=== PATIENT | female | born 1995 | race Caucasian/White ===

== ENCOUNTER → 2018-04-13 | Outpatient (CLI) | payer BC | END | disposition home or self-care (01) | LOC: C.LAB 11:43 | PROVIDERS: ATTEND Family Medicine | DX: F41.1 Generalized anxiety disorder (principal) ==

== ENCOUNTER 2024-11-01 07:21 | Inpatient (IN) ==
[2024-11-01] MEDS ORDERED: LIDOCAINE 1% LOCAL 20 ML VIAL INFIL PRN (08:17)
[2024-11-01] MEDS ORDERED: OXYTOCIN 30 UNITS/NSS 30 UNITS/500 ML BAG IV PRN (08:17)
[2024-11-01] MEDS: LACTATED RINGER'S 1,000 ML IV PRN (08:46)
[2024-11-01] MEDS: OXYTOCIN 30 UNITS/NSS 30 UNITS/500 ML BAG IV PRN (08:47)
[2024-11-01] MEDS: PENICILLIN GK 6 MU in SODIUM CHLORIDE 0.9% 250 ML IV STA (08:51)
[2024-11-01 09:22] LABS: Hematocrit (blood only) 34.2 % (37.0-47.0); Hemoglobin 11.9 g/dl (12.0-16.0); Mean Corpuscular Hemoglobin 30.9 pg (25.0-34.0); Mean Corpuscular Hgb Conc 34.8 g/dL (32.0-36.0); Mean Corpuscular Volume 88.8 fL (80.0-100.0); Mean Platelet Volume 11.8 fL (9.4-12.4); Platelet Count 219 K/uL (130-400); RDW Coefficient of Variation 14.5 % (11.5-14.5); RDW Standard Deviation 46.5 fL (36.4-46.3); Red Blood Count 3.85 M/uL (4.20-5.40); White Blood Count 11.78 K/ul (4.8-10.8)
--- NOTE | 2024-11-01 09:27 | History & Physical Report ---
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 Pit started. Pen G for GBS+. External FHT and external uterine monitors in place; category 1 POC glucose 111; recheck q4h Rh+, RI, AFVSS Admission and Anticipated Discharge Date Admission Date: November 01, 2024 History of Present Illness Chief Complaint: IOL Primary Care Provider: NO PCP Patient is a 28yo female G1P currently at 39 5/7 WGA (w TREVA 11/03/24 as determined by US) who is here for elective IOL. Pt has h/o generalized anxiety and PCOS. This has been complicated by A1GDM. Fetus LGA w efw 86% at 36wks. Patient has had regular appointments with OB. She denies fevers, fatigue, PAYNE, SOB, chest pain, leg swelling, or n/v exceeding baseline - related symptoms. Mild, irregular ctx; +FM; no FL or BS; FHT cat 1 Blood type: O+ Antibody screen: Neg GBS: Neg Rubella: Immune VDRL/RPR: Neg Gonorrhea: Not detected Chalmydia: Not detected HIV: Non-reactive HbSAg: Non-reactive Allergies Allergy/AdvReac Type Severity Reaction Status Date / Time No Known Allergies Allergy Verified 10/31/24 10:21 Home Medications Medication Instructions Recorded Confirmed Type sertraline [Zoloft] PO 10/09/21 10/31/24 History L. acidophilus/Bifid. animalis PO 04/10/24 10/31/24 History [Daily Probiotic] cranberry fruit concentrate [Azo PO 04/10/24 10/31/24 History Cranberry] 21-iron fu-folic acid PO 04/10/24 10/31/24 History [ Complete] acetone (urine) test (Ketone Urine #50 ea 06/22/24 10/31/24 Rx Test strips) blood sugar diagnostic (OneTouch #150 ea 07/25/24 10/31/24 Rx Verio test strips) lancets 33 gauge (OneTouch Delica #150 ea 07/25/24 10/31/24 Rx Plus Lancet) Past Med/Surg History Problem List (Updated 11/01/24 @ 09:19 by Bay Kaur MD) LGA (large for gestational age) fetus affecting management of mother Gestational diabetes mellitus (GDM) affecting , antepartum 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 B Streptococcus Encounter for anatomic survey Supervision of normal first PCOS (polycystic ovarian syndrome) Secondary amenorrhea Medical History (Updated 11/01/24 @ 09:19 by Bay Kaur MD) UTI (urinary tract infection) Varicella vaccination Anxiety Surgical History S/P wisdom tooth extraction S/P laparoscopic cholecystectomy Family History Other Depression Endometriosis Hypertension Denies family history of Ovarian cancer Breast cancer Colorectal cancer Uterine cancer Social History (Updated 04/10/24 @ 14:09 by Mercedes Gaines) Smoking Status: Never smoker Second Hand Exposure: No; Do You Dip or Chew Tobacco: No; Tobacco Cessation Education Requested by Patient: No Hx Alcohol Use: No Hx Substance Use: No Preferred Language: Georgian Communication Ability: Effective Seal Extrusion Operator Required: No Beliefs That Will Affect Care: None marital status: marital status details: Gyale Albrecht (29) [phone] Current Living Situation: Spouse Current Living Situation Comment: - Delisa current occupational status: employed current occupation: [employer] at [employer] [place] Other Information That Helps Us Care for You: No Feels Safe at Home: Yes Safety Concerns: Feels Safe At This Time Assistive Devices: Contacts Review of Systems 2 Review of Systems: Full ROS conducted and negative except as noted in HPI. Physical Exam 2 Physical Exam: General: Alert and oriented. No acute distress CV: Regular rate and rhythm. No murmurs. Respiratory: CTA bilaterally. No increased work of breathing. Symmetrical chest rise. Abdomen: Gravid: Soft, nontender upon palpation Pelvic: Dilated 1.5 cm; Effacement 50; Station -[address] Marion Lower extremities: No LE edema. No deep calf pain. Results & Data Results & Data Vital Signs (Past 12 Hours) Vital Signs Temp Pulse Resp BP 11/01/24 08:49 88 124/77 11/01/24 07:55 93 H 120/72 11/01/24 07:42 37.2 C 93 H 16 120/72 Laboratory Results 11/01/24 08:47 11/01/24 08:02 POC Glucose 111 H Supervising Physician Co-Signing Physician Notes Resident Physician Supervision Note: I interviewed and examined the patient. Discussed with Dr. Kaur and agree with findings and plan as documented in the note. Any exceptions or clarifications are listed here: 28 yo G1 at 39 5/7 wga presents for eiol for susp LGA. PNI: A1GDM, GBS+. VSS, Fetus cat 1. EFW 8-9lbs. SVE 1.5/50/-2, ceph confirmed by bsus. 35cc sanabria placed and will start pit, gbs + w/ pcn started. Discussed aware of lga, not at point to offer eCS but will see how labor goes Documented By: Stefani Marion MD Resident Activity Tracking Resident Involvement: Resident Care Provided Care Provided: Adult Hospital Medicine and OB Delivery
[2024-11-01] MEDS: SERTRALINE HCL 50 MG TABLET PO SCH (09:58)
[2024-11-01] MEDS: PENICILLIN GK 3 MU in DEXTROSE 5% 100 ML IV PRN (12:38)
--- NOTE | 2024-11-01 15:00 | Labor Progress Brief Note ---
Date of Service November 01, 2024 Subjective bulb out Assessment & Plan (1) Supervision of normal first : (2) Gestational diabetes mellitus (GDM) affecting , antepartum: (3) 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 B Streptococcus: (4) LGA (large for gestational age) fetus affecting management of mother: Plan 28 yo G1 at 39 5/7 wga presents for eiol VSS Fetus cat 1 Labor - pit at 14, now s/p arom. Continue induction GDM - BG wnl GBS+, pcn ordered epidural prn Admission and Anticipated Discharge Date Admission Date: November 01, 2024 Physical Exam Genitourinary: Manual OB Exam: + cervical dilation 4 cm, + cervical effacement 50%, + station -2 and + amniotic fluid (arom clear) OB Exam Monitor Tracing: + external FHT monitor used, + external uterine monitor used (q3) and + category I (115/mod/+accel/-decel) Results & Data Vital Signs (Past 12 Hours) Vital Signs Temp Pulse Resp BP 11/01/24 14:42 87 129/91 11/01/24 14:12 68 112/65 11/01/24 13:42 80 120/68 11/01/24 12:32 80 114/71 11/01/24 12:31 16 11/01/24 12:31 98.2 F 16 11/01/24 11:45 85 121/70 11/01/24 11:16 85 114/74 11/01/24 10:45 81 116/77 11/01/24 09:46 82 122/73 11/01/24 09:16 77 117/69 11/01/24 08:49 88 124/77 11/01/24 07:55 93 H 120/72 11/01/24 07:42 99.0 F 93 H 16 120/72 Coding Level of Care Code None Diagnoses Supervision of normal first Z34.00 Gestational diabetes mellitus (GDM) affecting , antepartum O24.419 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 B Streptococcus Z22.330 LGA (large for gestational age) fetus affecting management of mother O36.60X0
[2024-11-01] MEDS ORDERED: BUPIVACAINE 0.25% PF 30 ML VIAL EPI PRN (17:26)
[2024-11-01] MEDS ORDERED: NALOXONE HCL 1 MG in SODIUM CHLORIDE 0.9% 1,000 ML IV PRN (17:26)
[2024-11-01] MEDS ORDERED: ROPIVACAINE 0.5% PF 5 MG/ML 20 ML VIAL EPI PRN (17:26)
[2024-11-01] MEDS ORDERED: ePHEDrine sulfate 50 MG/ML AMP IV PRN (17:26)
[2024-11-01] MEDS ORDERED: NALBUPHINE HCL INJ 10 MG/ML AMP IV PRN (17:26)
[2024-11-01] MEDS ORDERED: fentaNYL citrate PF 100 MCG/2 ML VIAL EPI PRN (17:26)
[2024-11-01] MEDS ORDERED: NALOXONE HCL 0.4 MG/1 ML VIAL/CARP IV PRN (17:26)
[2024-11-01] MEDS ORDERED: PROMETHAZINE 6.25 MG/50.25 ML BAG IV PRN (17:26)
[2024-11-01] MEDS ORDERED: ONDANSETRON INJ 2 MG/ML 2 ML VIAL IV PRN (17:26)
[2024-11-01] MEDS ORDERED: LIDOCAINE 2% MPF LOCAL 5 ML VIAL EPI PRN (17:26)
[2024-11-01] MEDS ORDERED: SODIUM CHLORIDE 0.9% PF INJ 10 ML VIAL EPI PRN (17:26)
[2024-11-01] MEDS ORDERED: diphenhydrAMINE 50 MG/ML VIAL IV PRN (17:26)
--- NOTE | 2024-11-01 17:38 | Anesthesiology Consultation ---
Date of Service November 01, 2024 Assessment & Plan Chart Review Chart Review: Patient NOT seen in Pre Admission Testing and Acceptable Risk for Labor Epidural Consults Requested none ASA ASA2 Proposed Anesthesia Anesthesia Type: Labor Epidural Risk / Benefits Reviewed With: PT / POA / Parent / Guardian, Accepts Plan and Informed Consent Obtained History Height/Weight Height: 5 ft 4 in Weight: 91.626 kg Allergies Allergy/AdvReac Type Severity Reaction Status Date / Time No Known Allergies Allergy Verified 10/31/24 10:21 Medications Home Medications Medication Instructions Recorded Confirmed Last Taken sertraline [Zoloft] PO 10/09/21 10/31/24 Unknown L. acidophilus/Bifid. animalis PO 04/10/24 10/31/24 Unknown [Daily Probiotic] cranberry fruit concentrate [Azo PO 04/10/24 10/31/24 Unknown Cranberry] 21-iron fu-folic acid PO 04/10/24 10/31/24 Unknown [ Complete] acetone (urine) test (Ketone Urine #50 ea 06/22/24 10/31/24 Unknown Test strips) blood sugar diagnostic (OneTouch #150 ea 07/25/24 10/31/24 Unknown Verio test strips) lancets 33 gauge (OneTouch Delica #150 ea 07/25/24 10/31/24 Unknown Plus Lancet) Active Medications Generic Name Dose Route Start Last Admin Trade Name Freq PRN Reason Stop Dose Admin Lactated Ringer's 1,000 mls @ 125 mls/hr 11/01/24 08:17 11/01/24 17:05 Lr IV 11/02/24 08:16 999 mls/hr .Q8H PRN Infusion L&D Protocol Protocol Penicillin G Potassium 3 mu/ 106 mls @ 100 mls/hr 11/01/24 11:17 11/01/24 16:40 Dextrose IV 11/11/24 11:16 100 mls/hr Q4H PRN Administration GBS(+) Until Delivery Oxytocin 30 units in 500 mls @ 14 mls/hr 11/01/24 08:32 11/01/24 14:15 Pitocin 30 Units/Nss IV 11/03/24 08:31 0.84 units/hr .Q24H PRN 14 mls/hr Labor Induction/Augmentation Titration Protocol 0.84 UNITS/HR Sertraline HCl 50 mg 11/01/24 09:00 11/01/24 09:58 Sertraline Hcl 50 Mg Tablet PO 12/01/24 08:59 50 mg DAILY RIELY Administration Past Medical History Medical History (Updated 11/01/24 @ 09:19 by Bay Kaur MD) UTI (urinary tract infection) Varicella vaccination Anxiety Exercise / Class Metabolic Activity II 4-5 Yardwork/Stairs/Walk up hill Past Family History Family History Other Depression Endometriosis Hypertension Denies family history of Ovarian cancer Breast cancer Colorectal cancer Uterine cancer Past Surgical History Surgical History S/P wisdom tooth extraction S/P laparoscopic cholecystectomy Past Anesthesia History No Hx of Anesthesia Complications and No Family Hx of Anesthesia Complications History of PONV No Hx of PONV and No Hx of Motion Sickness Social History Smoking Status: Never smoker Do You Dip or Chew Tobacco: No Hx Alcohol Use: No Hx Substance Use: No Physical Exam Vital Signs Last Vital Signs Temp 36.6 C 11/01/24 16:59 Pulse 87 11/01/24 17:34 Resp 16 11/01/24 17:30 BP 119/81 11/01/24 17:34 Pulse Ox 97 11/01/24 17:31 ENMT Mouth: no dentition abnormality Thyromental Distance: > or= 3.5 Finger Breadths Mallampati Class: II Neck normal visual inspection Respiratory normal respiratory effort Auscultation: lungs clear to auscultation bilaterally Cardiovascular Rate/Rhythm: regular rate and regular rhythm Psychiatric Orientation: alert Testing Laboratory Results 11/01/24 08:47 11/01/24 11/01/24 11/01/24 16:38 14:39 10:11 POC Glucose 82 90 87 11/01/24 08:02 POC Glucose 111 H
[2024-11-01] MEDS: fentANYL 2 MCG/ML BUPIVacaine 0.125%-NSS 100ML BAG ONE (17:49)
[2024-11-01] MEDS: LIDOCAINE 2%/EPINEPHRINE 1:200,000 20 ML PF ONE (17:51)
[2024-11-01] MEDS: BUPIVACAINE 0.25% PF 30 ML VIAL ONE (17:51)
[2024-11-01] MEDS: SODIUM CHLORIDE 0.9% PF INJ 10 ML VIAL ONE (17:51)
--- NOTE | 2024-11-01 20:43 | Labor Progress Brief Note ---
Date of Service November 01, 2024 Subjective comfortable w/ epidural Assessment & Plan (1) Supervision of normal first : (2) Gestational diabetes mellitus (GDM) affecting , antepartum: (3) 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 B Streptococcus: (4) LGA (large for gestational age) fetus affecting management of mother: Plan 28 yo G1 at 39 5/7 wga presents for eiol VSS Fetus cat 1 Labor - pit at 18, progress noted from my arom. IUPC placed so can guide contractions more GDM - BG wnl GBS+, pcn ordered epidural in place Admission and Anticipated Discharge Date Admission Date: November 01, 2024 Physical Exam Genitourinary: Manual OB Exam: + cervical dilation 5 cm, + cervical effacement 70% and + station -2 OB Exam Monitor Tracing: + external FHT monitor used, + intra-uterine pressure catheter used (placed, q3) and + category I (115/mod/+accel/-decel) Results & Data Vital Signs (Past 12 Hours) Vital Signs Temp Pulse Resp BP Pulse Ox 11/01/24 20:36 67 99 11/01/24 20:31 74 98 11/01/24 20:26 67 98 11/01/24 20:21 62 102/58 L 98 11/01/24 20:16 60 98 11/01/24 20:11 62 97 11/01/24 20:07 76 102/55 L 11/01/24 20:06 73 97 11/01/24 20:01 67 97 11/01/24 19:56 63 97 11/01/24 19:53 68 100/52 L 11/01/24 19:51 67 96 11/01/24 19:46 85 96 11/01/24 19:41 76 95 11/01/24 19:36 79 105/59 L 96 11/01/24 19:31 80 95 11/01/24 19:30 80 94 11/01/24 19:26 71 95 11/01/24 19:21 96 11/01/24 19:21 78 11/01/24 19:21 78 100/55 L 11/01/24 19:16 82 96 11/01/24 19:11 79 96 11/01/24 19:08 75 106/57 L 11/01/24 19:06 81 97 11/01/24 19:05 98.8 F 20 11/01/24 19:01 72 97 11/01/24 19:00 16 11/01/24 19:00 16 11/01/24 18:56 68 97 11/01/24 18:52 63 112/60 11/01/24 18:51 63 96 11/01/24 18:46 71 97 11/01/24 18:41 70 97 11/01/24 18:37 74 111/59 L 11/01/24 18:36 63 96 11/01/24 18:31 92 H 98 11/01/24 18:30 16 11/01/24 18:30 16 11/01/24 18:26 89 97 11/01/24 18:22 81 114/53 L 11/01/24 18:21 102 H 97 11/01/24 18:16 81 95 11/01/24 18:11 81 95 11/01/24 18:06 78 120/59 L 95 11/01/24 18:01 16 11/01/24 18:01 16 11/01/24 18:01 96 11/01/24 18:01 85 11/01/24 18:01 90 115/63 11/01/24 18:00 16 11/01/24 18:00 16 11/01/24 17:59 77 119/66 11/01/24 17:57 90 111/68 11/01/24 17:56 88 96 11/01/24 17:55 85 118/73 11/01/24 17:54 16 11/01/24 17:54 16 11/01/24 17:53 80 116/72 11/01/24 17:51 97 11/01/24 17:51 91 H 11/01/24 17:51 82 115/75 11/01/24 17:50 16 11/01/24 17:50 16 11/01/24 17:49 91 H 121/80 11/01/24 17:46 97 H 98 11/01/24 17:41 96 H 99 11/01/24 17:36 96 H 96 11/01/24 17:34 87 119/81 11/01/24 17:31 86 97 11/01/24 17:30 16 11/01/24 17:30 16 11/01/24 17:26 83 96 11/01/24 17:21 80 97 11/01/24 17:16 91 H 98 11/01/24 16:59 97.9 F 11/01/24 15:57 76 144/83 H 11/01/24 15:13 76 121/74 11/01/24 14:50 97.9 F 11/01/24 14:42 87 129/91 11/01/24 14:12 68 112/65 11/01/24 13:42 80 120/68 11/01/24 12:32 80 114/71 11/01/24 12:31 16 11/01/24 12:31 98.2 F 16 11/01/24 11:45 85 121/70 11/01/24 11:16 85 114/74 11/01/24 10:45 81 116/77 11/01/24 09:46 82 122/73 11/01/24 09:16 77 117/69 11/01/24 08:49 88 124/77 Coding Level of Care Code None Diagnoses Supervision of normal first Z34.00 Gestational diabetes mellitus (GDM) affecting , antepartum O24.419 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 B Streptococcus Z22.330 LGA (large for gestational age) fetus affecting management of mother O36.60X0
--- NOTE | 2024-11-01 22:56 | Labor Progress Brief Note ---
Date of Service November 01, 2024 Subjective having some variables Assessment & Plan (1) Gestational diabetes mellitus (GDM) affecting , antepartum: (2) LGA (large for gestational age) fetus affecting management of mother: (3) 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 B Streptococcus: Plan 28 yo G1 at 39 5/7 wga presents for eiol VSS Fetus cat 2 but reassuring Labor - pit at 22. Discussed variables but good progress noted from my last check, reassuring variability still. Discussed amnioinfusion to try to help relieve variables as well and pt agreeable GDM - q2hbg GBS+, pcn ordered epidural in place Admission and Anticipated Discharge Date Admission Date: November 01, 2024 Physical Exam Genitourinary: Manual OB Exam: + cervical dilation (6-7), + cervical effacement 80% and + station -2 OB Exam Monitor Tracing: + external FHT desmond tor used, + intra-uterine pressure catheter used and + category II (130/mod/+accels/+variables and early decels) Results & Data Vital Signs (Past 12 Hours) Vital Signs Temp Pulse Resp BP Pulse Ox 11/01/24 22:46 71 98 11/01/24 22:41 90 97 11/01/24 22:36 88 124/77 96 11/01/24 22:31 82 97 11/01/24 22:26 78 98 11/01/24 22:25 78 92 11/01/24 22:22 73 125/76 11/01/24 22:21 79 98 11/01/24 22:16 82 97 11/01/24 22:11 81 98 11/01/24 22:06 69 114/57 L 98 11/01/24 22:01 65 98 11/01/24 21:56 81 98 11/01/24 21:51 67 98 11/01/24 21:46 82 98 11/01/24 21:41 78 98 11/01/24 21:36 99 11/01/24 21:36 83 11/01/24 21:36 80 121/67 11/01/24 21:31 71 99 11/01/24 21:26 81 99 11/01/24 21:21 79 114/64 100 11/01/24 21:16 80 100 11/01/24 21:11 86 96 11/01/24 21:10 97.9 F 11/01/24 21:06 100 02/19/25 21:06 82 11/01/24 21:06 82 124/67 11/01/24 21:04 74 94 11/01/24 21:01 76 100 11/01/24 20:56 75 100 11/01/24 20:53 76 121/67 11/01/24 20:51 76 99 11/01/24 20:46 77 98 11/01/24 20:45 81 93 11/01/24 20:41 79 98 11/01/24 20:36 67 99 11/01/24 20:31 74 98 11/01/24 20:26 67 98 11/01/24 20:21 62 102/58 L 98 11/01/24 20:16 60 98 11/01/24 20:11 62 97 11/01/24 20:07 76 102/55 L 11/01/24 20:06 73 97 11/01/24 20:01 67 97 11/01/24 19:56 63 97 11/01/24 19:53 68 100/52 L 11/01/24 19:51 67 96 11/01/24 19:46 85 96 11/01/24 19:41 76 95 11/01/24 19:36 79 105/59 L 96 11/01/24 19:31 80 95 11/01/24 19:30 80 94 11/01/24 19:26 71 95 11/01/24 19:21 96 11/01/24 19:21 78 11/01/24 19:21 78 100/55 L 11/01/24 19:16 82 96 11/01/24 19:11 79 96 11/01/24 19:08 75 106/57 L 11/01/24 19:06 81 97 11/01/24 19:05 98.8 F 20 11/01/24 19:01 72 97 11/01/24 19:00 16 11/01/24 19:00 16 11/01/24 18:56 68 97 11/01/24 18:52 63 112/60 11/01/24 18:51 63 96 11/01/24 18:46 71 97 11/01/24 18:41 70 97 11/01/24 18:37 74 111/59 L 11/01/24 18:36 63 96 11/01/24 18:31 92 H 98 11/01/24 18:30 16 11/01/24 18:30 16 11/01/24 18:26 89 97 11/01/24 18:22 81 114/53 L 11/01/24 18:21 102 H 97 11/01/24 18:16 81 95 11/01/24 18:11 81 95 11/01/24 18:06 78 120/59 L 95 11/01/24 18:01 16 11/01/24 18:01 16 11/01/24 18:01 96 11/01/24 18:01 85 11/01/24 18:01 90 115/63 11/01/24 18:00 16 11/01/24 18:00 16 11/01/24 17:59 77 119/66 11/01/24 17:57 90 111/68 11/01/24 17:56 88 96 11/01/24 17:55 85 118/73 11/01/24 17:54 16 11/01/24 17:54 16 11/01/24 17:53 80 116/72 11/01/24 17:51 97 11/01/24 17:51 91 H 11/01/24 17:51 82 115/75 11/01/24 17:50 16 11/01/24 17:50 16 11/01/24 17:49 91 H 121/80 11/01/24 17:46 97 H 98 11/01/24 17:41 96 H 99 11/01/24 17:36 96 H 96 11/01/24 17:34 87 119/81 11/01/24 17:31 86 97 11/01/24 17:30 16 11/01/24 17:30 16 11/01/24 17:26 83 96 11/01/24 17:21 80 97 11/01/24 17:16 91 H 98 11/01/24 16:59 97.9 F 11/01/24 15:57 76 144/83 H 11/01/24 15:13 76 121/74 11/01/24 14:50 97.9 F 11/01/24 14:42 87 129/91 11/01/24 14:12 68 112/65 11/01/24 13:42 80 120/68 11/01/24 12:32 80 114/71 11/01/24 12:31 16 11/01/24 12:31 98.2 F 16 11/01/24 11:45 85 121/70 11/01/24 11:16 85 114/74 Coding Level of Care Code None Diagnoses Gestational diabetes mellitus (GDM) affecting , antepartum O24.419 LGA (large for gestational age) fetus affecting management of mother O36.60X0 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 B Streptococcus Z22.330
--- NOTE | 2024-11-02 02:13 | Labor Progress Brief Note ---
Date of Service November 02, 2024 Subjective comfortable Assessment & Plan (1) Gestational diabetes mellitus (GDM) affecting , antepartum: (2) LGA (large for gestational age) fetus affecting management of mother: (3) 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 B Streptococcus: Plan 28 yo G1 at 39 5/7 wga presents for eiol VSS Fetus cat 2 but reassuring Labor - pit at 22, didn't end up needing amnioinfusion and now good progress. Fetus still reassuring with intermit variables. Will try to peanut ball to get remaining cervix away and baby lower to start pushing GDM - q2hbg GBS+, pcn ordered epidural in place Admission and Anticipated Discharge Date Admission Date: November 01, 2024 Physical Exam Genitourinary: Manual OB Exam: + cervical dilation (9.5), + cervical effacement 100% and + station + 1 OB Exam Monitor Tracing: + external FHT monitor used, + external uterine monitor used (q3), + intra-uterine pressure catheter used and + category II (130/mod/+accels/+intermit variables and early decels) Results & Data Vital Signs (Past 12 Hours) Vital Signs Temp Pulse Resp BP Pulse Ox 11/02/24 02:07 87 94 11/02/24 02:06 81 106/57 L 11/02/24 02:02 92 H 94 11/02/24 01:57 83 94 11/02/24 01:52 92 H 94 11/02/24 01:51 93 H 100/59 L 11/02/24 01:47 82 95 11/02/24 01:42 81 95 11/02/24 01:37 96 11/02/24 01:37 94 H 11/02/24 01:37 96 H 114/56 L 11/02/24 01:35 99.5 F 11/02/24 01:32 92 H 94 11/02/24 01:28 86 94 11/02/24 01:27 92 H 94 11/02/24 01:22 91 H 117/56 L 95 11/02/24 01:21 87 94 11/02/24 01:17 85 94 11/02/24 01:13 87 94 11/02/24 01:12 91 H 95 11/02/24 01:07 96 11/02/24 01:07 88 11/02/24 01:07 85 121/57 L 11/02/24 01:04 82 94 11/02/24 01:02 83 95 11/02/24 00:57 95 11/02/24 00:57 82 11/02/24 00:57 83 94 11/02/24 00:52 95 11/02/24 00:52 78 11/02/24 00:52 83 117/58 L 11/02/24 00:46 84 95 11/02/24 00:41 81 96 11/02/24 00:36 79 96 11/02/24 00:31 71 97 11/02/24 00:26 87 98 11/02/24 00:21 81 98 11/02/24 00:16 96 H 96 11/02/24 00:11 81 98 11/02/24 00:06 76 122/62 97 11/02/24 00:01 83 95 11/01/24 23:59 75 94 11/01/24 23:56 80 95 11/01/24 23:52 77 125/67 11/01/24 23:51 75 95 11/01/24 23:46 76 96 11/01/24 23:41 92 H 97 11/01/24 23:37 79 127/68 11/01/24 23:36 75 97 11/01/24 23:35 98.8 F 11/01/24 23:31 80 99 11/01/24 23:26 79 99 11/01/24 23:21 98 11/01/24 23:21 83 11/01/24 23:21 80 137/73 11/01/24 23:16 83 98 11/01/24 23:11 82 98 11/01/24 23:07 82 134/73 11/01/24 23:06 77 98 11/01/24 23:01 100 11/01/24 23:01 79 11/01/24 23:01 81 92 11/01/24 22:56 71 100 11/01/24 22:51 81 120/69 99 11/01/24 22:46 71 98 11/01/24 22:41 90 97 11/01/24 22:36 88 124/77 96 11/01/24 22:31 82 97 11/01/24 22:26 78 98 11/01/24 22:25 78 92 11/01/24 22:22 73 125/76 11/01/24 22:21 79 98 11/01/24 22:16 82 97 11/01/24 22:11 81 98 11/01/24 22:06 69 114/57 L 98 11/01/24 22:01 65 98 11/01/24 21:56 81 98 11/01/24 21:51 67 98 11/01/24 21:46 82 98 11/01/24 21:41 78 98 11/01/24 21:36 99 11/01/24 21:36 83 11/01/24 21:36 80 121/67 11/01/24 21:31 71 99 11/01/24 21:26 81 99 11/01/24 21:21 79 114/64 100 11/01/24 21:16 80 100 11/01/24 21:11 86 96 11/01/24 21:10 97.9 F 11/01/24 21:06 100 11/01/24 21:06 82 11/01/24 21:06 82 124/67 11/01/24 21:04 74 94 11/01/24 21:01 76 100 11/01/24 20:56 75 100 11/01/24 20:53 76 121/67 11/01/24 20:51 76 99 11/01/24 20:46 77 98 11/01/24 20:45 81 93 11/01/24 20:41 79 98 11/01/24 20:36 67 99 11/01/24 20:31 74 98 11/01/24 20:26 67 98 11/01/24 20:21 62 102/58 L 98 11/01/24 20:16 60 98 11/01/24 20:11 62 97 11/01/24 20:07 76 102/55 L 11/01/24 20:06 73 97 11/01/24 20:01 67 97 11/01/24 19:56 63 97 11/01/24 19:53 68 100/52 L 11/01/24 19:51 67 96 11/01/24 19:46 85 96 11/01/24 19:41 76 95 11/01/24 19:36 79 105/59 L 96 11/01/24 19:31 80 95 11/01/24 19:30 80 94 11/01/24 19:26 71 95 11/01/24 19:21 96 11/01/24 19:21 78 11/01/24 19:21 78 100/55 L 11/01/24 19:16 82 96 11/01/24 19:11 79 96 11/01/24 19:08 75 106/57 L 11/01/24 19:06 81 97 11/01/24 19:05 98.8 F 20 11/01/24 19:01 72 97 11/01/24 19:00 16 11/01/24 19:00 16 11/01/24 18:56 68 97 11/01/24 18:52 63 112/60 11/01/24 18:51 63 96 11/01/24 18:46 71 97 11/01/24 18:41 70 97 11/01/24 18:37 74 111/59 L 11/01/24 18:36 63 96 11/01/24 18:31 92 H 98 11/01/24 18:30 16 11/01/24 18:30 16 11/01/24 18:26 89 97 11/01/24 18:22 81 114/53 L 11/01/24 18:21 102 H 97 11/01/24 18:16 81 95 11/01/24 18:11 81 95 11/01/24 18:06 78 120/59 L 95 11/01/24 18:01 16 11/01/24 18:01 16 11/01/24 18:01 96 11/01/24 18:01 85 11/01/24 18:01 90 115/63 11/01/24 18:00 16 11/01/24 18:00 16 11/01/24 17:59 77 119/66 11/01/24 17:57 90 111/68 11/01/24 17:56 88 96 11/01/24 17:55 85 118/73 11/01/24 17:54 16 11/01/24 17:54 16 11/01/24 17:53 80 116/72 11/01/24 17:51 97 11/01/24 17:51 91 H 11/01/24 17:51 82 115/75 11/01/24 17:50 16 11/01/24 17:50 16 11/01/24 17:49 91 H 121/80 11/01/24 17:46 97 H 98 11/01/24 17:41 96 H 99 11/01/24 17:36 96 H 96 11/01/24 17:34 87 119/81 11/01/24 17:31 86 97 11/01/24 17:30 16 11/01/24 17:30 16 11/01/24 17:26 83 96 11/01/24 17:21 80 97 11/01/24 17:16 91 H 98 11/01/24 16:59 97.9 F 11/01/24 15:57 76 144/83 H 11/01/24 15:13 76 121/74 11/01/24 14:50 97.9 F 11/01/24 14:42 87 129/91 11/01/24 14:12 68 112/65 Coding Level of Care Code None Diagnoses Gestational diabetes mellitus (GDM) affecting , antepartum O24.419 LGA (large for gestational age) fetus affecting management of mother O36.60X0 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 B Streptococcus Z22.330
[2024-11-02] MEDS: fentANYL 2 MCG/ML BUPIVacaine 0.125%-NSS 100ML BAG EPI PRN (03:21)
--- NOTE | 2024-11-02 06:41 | Labor Progress Brief Note ---
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 Makes good effort but there is component that she is still figuring out how to push. However, even with this, bottom is getting more swollen and there has not been significant change since she started pushing on discussion w/ nurse as well. Discussed concern that size is also impairing this, possible need for CS. She verbalized understanding, would like to try to push a little bit longer but aware that may be recommendation shortly and she would be agreeable. Will re-eval shortly Admission and Anticipated Discharge Date Admission Date: November 01, 2024 Physical Exam Genitourinary: Manual OB Exam: + cervical dilation 10 cm, + cervical effacement 100% and + station + 1 OB Exam Monitor Tracing: + external FHT monitor used, + external uterine monitor used and + category II (150- 155/mod/appropriate occ variables with pushing with good recovery) Results & Data Vital Signs (Past 12 Hours) Vital Signs Temp Pulse Resp BP Pulse Ox 11/02/24 06:33 98 H 89 L 11/02/24 06:31 99 H 93 11/02/24 05:59 98.8 F 11/02/24 05:57 143 H 94 11/02/24 05:52 139 H 94 11/02/24 05:47 137 H 94 11/02/24 05:42 120 H 94 11/02/24 05:37 123 H 94 11/02/24 05:32 129 H 96 11/02/24 05:29 102 H 124/64 11/02/24 05:27 123 H 95 11/02/24 05:22 150 H 95 11/02/24 05:21 116 H 122/62 11/02/24 05:17 113 H 95 11/02/24 05:12 134 H 94 11/02/24 05:07 149 H 96 11/02/24 05:06 105 H 130/60 11/02/24 05:02 104 H 95 11/02/24 04:57 108 H 95 11/02/24 04:53 113 H 133/63 11/02/24 04:52 137 H 94 11/02/24 04:47 114 H 95 11/02/24 04:42 137 H 95 11/02/24 04:37 119 H 95 11/02/24 04:32 96 11/02/24 04:32 101 H 11/02/24 04:32 122 H 89 L 11/02/24 04:27 105 H 96 11/02/24 04:22 124 H 96 11/02/24 04:21 108 H 136/74 11/02/24 04:17 124 H 96 11/02/24 04:12 97 H 97 11/02/24 04:07 89 97 11/02/24 04:06 108 H 132/72 11/02/24 04:02 91 H 97 11/02/24 03:57 94 H 97 11/02/24 03:52 88 96 11/02/24 03:47 89 97 11/02/24 03:42 92 H 97 11/02/24 03:37 89 98 11/02/24 03:36 88 130/76 11/02/24 03:32 86 97 11/02/24 03:30 18 11/02/24 03:30 98.8 F 18 11/02/24 03:27 88 97 11/02/24 03:22 89 133/77 97 11/02/24 03:17 89 98 11/02/24 03:12 88 98 11/02/24 03:07 96 H 97 11/02/24 03:02 103 H 97 11/02/24 02:57 91 H 97 11/02/24 02:52 87 96 11/02/24 02:47 89 96 11/02/24 02:42 87 97 11/02/24 02:37 82 96 11/02/24 02:36 90 109/59 L 11/02/24 02:32 79 97 11/02/24 02:27 78 97 11/02/24 02:22 80 97 11/02/24 02:21 86 109/60 11/02/24 02:17 88 97 11/02/24 02:12 91 H 97 11/02/24 02:07 87 94 11/02/24 02:06 81 106/57 L 11/02/24 02:02 92 H 94 11/02/24 01:57 83 94 11/02/24 01:52 92 H 94 11/02/24 01:51 93 H 100/59 L 11/02/24 01:47 82 95 11/02/24 01:42 81 95 11/02/24 01:37 96 11/02/24 01:37 94 H 11/02/24 01:37 96 H 114/56 L 11/02/24 01:35 99.5 F 11/02/24 01:32 92 H 94 11/02/24 01:28 86 94 11/02/24 01:27 92 H 94 11/02/24 01:22 91 H 117/56 L 95 11/02/24 01:21 87 94 11/02/24 01:17 85 94 11/02/24 01:13 87 94 11/02/24 01:12 91 H 95 11/02/24 01:07 96 11/02/24 01:07 88 11/02/24 01:07 85 121/57 L 11/02/24 01:04 82 94 11/02/24 01:02 83 95 11/02/24 00:57 95 11/02/24 00:57 82 11/02/24 00:57 83 94 11/02/24 00:52 95 11/02/24 00:52 78 11/02/24 00:52 83 117/58 L 11/02/24 00:46 84 95 11/02/24 00:41 81 96 11/02/24 00:36 79 96 11/02/24 00:31 71 97 11/02/24 00:26 87 98 11/02/24 00:21 81 98 11/02/24 00:16 96 H 96 11/02/24 00:11 81 98 11/02/24 00:06 76 122/62 97 11/02/24 00:01 83 95 11/01/24 23:59 75 94 11/01/24 23:56 80 95 11/01/24 23:52 77 125/67 11/01/24 23:51 75 95 11/01/24 23:46 76 96 11/01/24 23:41 92 H 97 11/01/24 23:37 79 127/68 11/01/24 23:36 75 97 02/19/25 23:35 98.8 F 11/01/24 23:31 80 99 11/01/24 23:26 79 99 11/01/24 23:21 98 11/01/24 23:21 83 11/01/24 23:21 80 137/73 11/01/24 23:16 83 98 11/01/24 23:11 82 98 11/01/24 23:07 82 134/73 11/01/24 23:06 77 98 11/01/24 23:01 100 11/01/24 23:01 79 11/01/24 23:01 81 92 11/01/24 22:56 71 100 11/01/24 22:51 81 120/69 99 11/01/24 22:46 71 98 11/01/24 22:41 90 97 11/01/24 22:36 88 124/77 96 11/01/24 22:31 82 97 11/01/24 22:26 78 98 11/01/24 22:25 78 92 11/01/24 22:22 73 125/76 11/01/24 22:21 79 98 11/01/24 22:16 82 97 11/01/24 22:11 81 98 11/01/24 22:06 69 114/57 L 98 11/01/24 22:01 65 98 11/01/24 21:56 81 98 11/01/24 21:51 67 98 11/01/24 21:46 82 98 11/01/24 21:41 78 98 11/01/24 21:36 99 11/01/24 21:36 83 11/01/24 21:36 80 121/67 11/01/24 21:31 71 99 11/01/24 21:26 81 99 11/01/24 21:21 79 114/64 100 11/01/24 21:16 80 100 11/01/24 21:11 86 96 11/01/24 21:10 97.9 F 11/01/24 21:06 100 11/01/24 21:06 82 11/01/24 21:06 82 124/67 11/01/24 21:04 74 94 11/01/24 21:01 76 100 11/01/24 20:56 75 100 11/01/24 20:53 76 121/67 11/01/24 20:51 76 99 11/01/24 20:46 77 98 11/01/24 20:45 81 93 11/01/24 20:41 79 98 11/01/24 20:36 67 99 11/01/24 20:31 74 98 11/01/24 20:26 67 98 11/01/24 20:21 62 102/58 L 98 11/01/24 20:16 60 98 11/01/24 20:11 62 97 11/01/24 20:07 76 102/55 L 11/01/24 20:06 73 97 11/01/24 20:01 67 97 11/01/24 19:56 63 97 11/01/24 19:53 68 100/52 L 11/01/24 19:51 67 96 11/01/24 19:46 85 96 11/01/24 19:41 76 95 11/01/24 19:36 79 105/59 L 96 11/01/24 19:31 80 95 11/01/24 19:30 80 94 11/01/24 19:26 71 95 11/01/24 19:21 96 11/01/24 19:21 78 11/01/24 19:21 78 100/55 L 11/01/24 19:16 82 96 11/01/24 19:11 79 96 11/01/24 19:08 75 106/57 L 11/01/24 19:06 81 97 11/01/24 19:05 98.8 F 20 11/01/24 19:01 72 97 11/01/24 19:00 16 11/01/24 19:00 16 11/01/24 18:56 68 97 11/01/24 18:52 63 112/60 11/01/24 18:51 63 96 11/01/24 18:46 71 97 11/01/24 18:41 70 97 11/01/24 18:37 74 111/59 L 11/01/24 18:36 63 96 Coding Level of Care Code None Diagnoses Gestational diabetes mellitus (GDM) affecting , antepartum O24.419 LGA (large for gestational age) fetus affecting management of mother O36.60X0 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 B Streptococcus Z22.330
[2024-11-02] MEDS ORDERED: SODIUM CHLORIDE 0.9% 100 ML IV PRN (07:18)
[2024-11-02] MEDS ORDERED: SODIUM CHLORIDE 0.9% 50 ML IV PRN (07:18)
--- NOTE | 2024-11-02 07:25 | Labor Progress Brief Note ---
Date of Service November 02, 2024 Assessment & Plan (1) Gestational diabetes mellitus (GDM) affecting , antepartum: (2) LGA (large for gestational age) fetus affecting management of mother: (3) 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 B Streptococcus: Plan 28 yo G1 at 39 5/7 wga presents for eiol VSS Fetus cat 2 but reassuring with pushing No real progress made since last eval and pt getting fatigued. Discussed concern for LGA, more caput, swelling as well and would rec CS and pt agreeable. Discussed indications, risks, benefits, alternatives with risks including infection, bleeding, injury to adjacent structures (bowel, bladder, ureters, blood vessels, nerves, baby), possible need for blood transfusion and/or life saving hysterectomy, VTE. Consent reviewed in detail w/ pt and signed after all questions answered to her satisfaction. Admission and Anticipated Discharge Date Admission Date: November 01, 2024 Physical Exam Genitourinary: OB Exam Monitor Tracing: + external FHT monitor used, + external uterine monitor used and + category II (150-155/mod/) Results & Data Vital Signs (Past 12 Hours) Vital Signs Temp Pulse Resp BP Pulse Ox 11/02/24 07:21 91 H 96 11/02/24 07:18 89 108/62 11/02/24 07:16 81 96 11/02/24 07:11 80 94 11/02/24 07:06 86 85 L 11/02/24 07:03 88 116/61 11/02/24 07:01 79 95 11/02/24 06:56 91 H 94 11/02/24 06:51 86 93 11/02/24 06:47 105 H 90 11/02/24 06:46 95 H 92 11/02/24 06:41 88 93 11/02/24 06:39 108 H 88 L 11/02/24 06:36 95 H 93 11/02/24 06:33 98 H 89 L 11/02/24 06:31 99 H 93 11/02/24 05:59 98.8 F 11/02/24 05:57 143 H 94 11/02/24 05:52 139 H 94 11/02/24 05:47 137 H 94 11/02/24 05:42 120 H 94 11/02/24 05:37 123 H 94 11/02/24 05:32 129 H 96 11/02/24 05:29 102 H 124/64 11/02/24 05:27 123 H 95 11/02/24 05:22 150 H 95 11/02/24 05:21 116 H 122/62 11/02/24 05:17 113 H 95 11/02/24 05:12 134 H 94 11/02/24 05:07 149 H 96 11/02/24 05:06 105 H 130/60 11/02/24 05:02 104 H 95 11/02/24 04:57 108 H 95 11/02/24 04:53 113 H 133/63 11/02/24 04:52 137 H 94 11/02/24 04:47 114 H 95 11/02/24 04:42 137 H 95 11/02/24 04:37 119 H 95 11/02/24 04:32 96 11/02/24 04:32 101 H 11/02/24 04:32 122 H 89 L 11/02/24 04:27 105 H 96 11/02/24 04:22 124 H 96 11/02/24 04:21 108 H 136/74 11/02/24 04:17 124 H 96 11/02/24 04:12 97 H 97 11/02/24 04:07 89 97 11/02/24 04:06 108 H 132/72 11/02/24 04:02 91 H 97 11/02/24 03:57 94 H 97 11/02/24 03:52 88 96 11/02/24 03:47 89 97 11/02/24 03:42 92 H 97 11/02/24 03:37 89 98 11/02/24 03:36 88 130/76 11/02/24 03:32 86 97 11/02/24 03:30 18 11/02/24 03:30 98.8 F 18 11/02/24 03:27 88 97 11/02/24 03:22 89 133/77 97 11/02/24 03:17 89 98 11/02/24 03:12 88 98 11/02/24 03:07 96 H 97 11/02/24 03:02 103 H 97 11/02/24 02:57 91 H 97 11/02/24 02:52 87 96 11/02/24 02:47 89 96 11/02/24 02:42 87 97 11/02/24 02:37 82 96 11/02/24 02:36 90 109/59 L 11/02/24 02:32 79 97 11/02/24 02:27 78 97 11/02/24 02:22 80 97 11/02/24 02:21 86 109/60 11/02/24 02:17 88 97 11/02/24 02:12 91 H 97 11/02/24 02:07 87 94 11/02/24 02:06 81 106/57 L 11/02/24 02:02 92 H 94 11/02/24 01:57 83 94 11/02/24 01:52 92 H 94 11/02/24 01:51 93 H 100/59 L 11/02/24 01:47 82 95 11/02/24 01:42 81 95 11/02/24 01:37 96 11/02/24 01:37 94 H 11/02/24 01:37 96 H 114/56 L 11/02/24 01:35 99.5 F 11/02/24 01:32 92 H 94 11/02/24 01:28 86 94 11/02/24 01:27 92 H 94 11/02/24 01:22 91 H 117/56 L 95 11/02/24 01:21 87 94 11/02/24 01:17 85 94 11/02/24 01:13 87 94 11/02/24 01:12 91 H 95 11/02/24 01:07 96 11/02/24 01:07 88 11/02/24 01:07 85 121/57 L 11/02/24 01:04 82 94 11/02/24 01:02 83 95 11/02/24 00:57 95 11/02/24 00:57 82 11/02/24 00:57 83 94 11/02/24 00:52 95 11/02/24 00:52 78 02 00:52 83 117/58 L 11/02/24 00:46 84 95 11/02/24 00:41 81 96 11/02/24 00:36 79 96 11/02/24 00:31 71 97 11/02/24 00:26 87 98 11/02/24 00:21 81 98 11/02/24 00:16 96 H 96 11/02/24 00:11 81 98 11/02/24 00:06 76 122/62 97 02/20/25 00:01 83 95 11/01/24 23:59 75 94 11/01/24 23:56 80 95 11/01/24 23:52 77 125/67 11/01/24 23:51 75 95 11/01/24 23:46 76 96 11/01/24 23:41 92 H 97 11/01/24 23:37 79 127/68 11/01/24 23:36 75 97 11/01/24 23:35 98.8 F 11/01/24 23:31 80 99 11/01/24 23:26 79 99 11/01/24 23:21 98 11/01/24 23:21 83 11/01/24 23:21 80 137/73 11/01/24 23:16 83 98 11/01/24 23:11 82 98 11/01/24 23:07 82 134/73 11/01/24 23:06 77 98 11/01/24 23:01 100 11/01/24 23:01 79 11/01/24 23:01 81 92 11/01/24 22:56 71 100 11/01/24 22:51 81 120/69 99 11/01/24 22:46 71 98 11/01/24 22:41 90 97 11/01/24 22:36 88 124/77 96 11/01/24 22:31 82 97 11/01/24 22:26 78 98 11/01/24 22:25 78 92 11/01/24 22:22 73 125/76 11/01/24 22:21 79 98 11/01/24 22:16 82 97 11/01/24 22:11 81 98 11/01/24 22:06 69 114/57 L 98 11/01/24 22:01 65 98 11/01/24 21:56 81 98 11/01/24 21:51 67 98 11/01/24 21:46 82 98 11/01/24 21:41 78 98 11/01/24 21:36 99 11/01/24 21:36 83 11/01/24 21:36 80 121/67 11/01/24 21:31 71 99 11/01/24 21:26 81 99 11/01/24 21:21 79 114/64 100 11/01/24 21:16 80 100 11/01/24 21:11 86 96 11/01/24 21:10 97.9 F 11/01/24 21:06 100 11/01/24 21:06 82 11/01/24 21:06 82 124/67 11/01/24 21:04 74 94 11/01/24 21:01 76 100 11/01/24 20:56 75 100 11/01/24 20:53 76 121/67 11/01/24 20:51 76 99 11/01/24 20:46 77 98 11/01/24 20:45 81 93 11/01/24 20:41 79 98 11/01/24 20:36 67 99 11/01/24 20:31 74 98 11/01/24 20:26 67 98 11/01/24 20:21 62 102/58 L 98 11/01/24 20:16 60 98 11/01/24 20:11 62 97 11/01/24 20:07 76 102/55 L 11/01/24 20:06 73 97 11/01/24 20:01 67 97 11/01/24 19:56 63 97 11/01/24 19:53 68 100/52 L 11/01/24 19:51 67 96 11/01/24 19:46 85 96 11/01/24 19:41 76 95 11/01/24 19:36 79 105/59 L 96 11/01/24 19:31 80 95 11/01/24 19:30 80 94 11/01/24 19:26 71 95 Coding Level of Care Code None Diagnoses Gestational diabetes mellitus (GDM) affecting , antepartum O24.419 LGA (large for gestational age) fetus affecting management of mother O36.60X0 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 B Streptococcus Z22.330
[2024-11-02] MEDS ORDERED: NALOXONE HCL 1 MG in SODIUM CHLORIDE 0.9% 1,000 ML IV PRN (07:30)
[2024-11-02] MEDS ORDERED: MoRPHine SULFATE 2 MG/ML CARP IV PRN (07:30)
[2024-11-02] MEDS ORDERED: ePHEDrine sulfate 50 MG/ML AMP IV PRN (07:30)
[2024-11-02] MEDS ORDERED: NALBUPHINE HCL INJ 10 MG/ML AMP IV PRN (07:30)
[2024-11-02] MEDS ORDERED: NALOXONE HCL 0.4 MG/1 ML VIAL/CARP IV PRN (07:30)
[2024-11-02] MEDS ORDERED: HYDROmorphone INJ 0.5 MG/0.5 ML SYR IV PRN (07:30)
[2024-11-02] MEDS ORDERED: MoRPHine SULFATE PF 1 MG/ML 10 ML AMP/VIAL EPI ONE (07:30)
[2024-11-02] MEDS ORDERED: NO NARCOTICS OR SEDATIVES SCH (07:30)
[2024-11-02] MEDS ORDERED: diphenhydrAMINE 50 MG/ML VIAL IV PRN (07:30)
[2024-11-02] MEDS ORDERED: DC INTRASPINAL MORPHINE SCH (07:30)
[2024-11-02] MEDS ORDERED: OXYTOCIN 10 UNITS/ML VIAL ONE (07:33)
[2024-11-02] MEDS ORDERED: PHENYLEPHRINE HCL 25 MG/250 ML NSS IV ONE (07:33)
[2024-11-02] MEDS ORDERED: MoRPHine SULFATE PF 1 MG/ML 10 ML AMP/VIAL ONE (07:33)
[2024-11-02] MEDS ORDERED: LIDOCAINE 2%/EPINEPHRINE 1:200,000 20 ML PF ONE (07:33)
[2024-11-02] MEDS ORDERED: fentaNYL citrate PF 100 MCG/2 ML VIAL ONE (07:33)
[2024-11-02] MEDS: CITRIC ACID/SODIUM CITRATE 15 ML UDC PO SCH (07:39)
[2024-11-02] MEDS: ceFAZolin 2000MG 2,000 MG/15 ML SYR IV SCH (07:40)
[2024-11-02] MEDS: AZITHROMYCIN 500 MG in SODIUM CHLORIDE 0.9% 250 ML IV SCH (07:44)
[2024-11-02] MEDS ORDERED: OXYTOCIN 20 UNITS/1002ML LR IV ONE (07:49)
[2024-11-02] MEDS ORDERED: DEXAMETHASONE SOD INJ 4 MG/ML VIAL ONE (08:02)
[2024-11-02] MEDS ORDERED: ONDANSETRON INJ 2 MG/ML 2 ML VIAL ONE (08:08)
[2024-11-02] MEDS: fentaNYL citrate PF 100 MCG/2 ML VIAL EPI STA (08:10)
[2024-11-02] MEDS: fentaNYL citrate PF 100 MCG/2 ML VIAL ONE (08:10)
[2024-11-02] MEDS: BUPIVACAINE 0.25% PF 30 ML VIAL ONE (08:10)
[2024-11-02] MEDS: BUPIVACAINE 0.25% PF 30 ML VIAL EPI STA (08:10)
[2024-11-02] MEDS: SODIUM CHLORIDE 0.9% PF INJ 10 ML VIAL EPI STA (08:10)
[2024-11-02] MEDS: ePHEDrine sulfate 50 MG/ML AMP ONE (08:10)
[2024-11-02] MEDS: LIDOCAINE 2%/EPINEPHRINE 1:200,000 20 ML PF EPI STA (08:10)
[2024-11-02] MEDS: ACETAMINOPHEN 500 MG TAB PO SCH (08:11)
[2024-11-02] MEDS ORDERED: METHYLERGONOVINE MALEATE 0.2 MG/ML AMP ONE (08:17)
[2024-11-02] MEDS: OXYTOCIN 20 UNITS/LR 1,002 ML IV SCH (08:45)
--- NOTE | 2024-11-02 08:55 | Operative Report ---
Post Operative Report Pre & Post Diagnosis Operation Date: 11/02/24 08:15 Pre-Op Diagnosis: Intrauterine at 39 6/7 wga; Arrest of Descent; Suspected LGA; A1GDM Post-Op Diagnosis: Same; Delivery of a live I identified the patient and participated in the time-out.: Yes Procedure Operation Date: 11/02/24 08:15 Primary Low Transverse Section Surgeon Stefani Marion MD [employer] MD Ailyn Quantitative Blood Loss (QBL) 815 Findings Consistent with Post-Op Diagnosis Uterus with small posterior fundal fibroid, otherwise wnl. Normal appearing fallopian tubes and ovaries bilaterally. Viable male infant with APGARs 7 and 9, weighing 7lbs 15oz Fluids UOP 300cc by sanabria catheter Specimens Placenta, cord blood Drains Sanabria draining clear urine Anesthesia Type Labor Epidural Complications none Disposition Accompanied Patient To Recovery: Yes Disposition: L&D Indications 28 yo G1 at 39 6/7 presented one day ago for elective induction due to A1GDM and suspected LGA. Penicillin was started for GBS+ status. Induction was begun with sanabria bulb and pitocin. Following bulb expulsion, she underwent arom. She received an epidural for pain control and progressed to complete and +1 station. She pushed for just about 3 hours with minimal descent. Given suspicion for LGA, was recommended for CS and pt desired to proceed Description of Procedure The patient was taken to the operating room after consents were ensured. The patient was properly identified. Epidural was bolused without difficulty. The patient was placed in a dorsal supine position with left lateral tilt, then prepped and draped in normal sterile fashion. Surgical time out was performed. Antibiotics were given for prophylaxis. Anesthesia was tested to ensure adequate surgical levels. Pfannenstiel skin incision was performed and carried down to the underlying fascia with a knife. The fascia was then nicked in the midline and extended laterally with pickastrid and Urena scissors. Superior portion of the fascia was grasped with Kochers x2 and elevated off the underlying rectus muscles using blunt dissection. Inferior portion of the fascia was then grasped with Mariaelena clamps x2 and also elevated off the underlying muscles with blunt dissection. Mi dline was identified. The peritoneum was then entered and extended to provide adequate room for delivery of baby. A hand was inserted into the abdomen, uterus was noted to be clear of adhesions. Bladder blade was inserted, bladder flap was created in the usual fashion. A low transverse uterine incision was made in the uterus and extended bluntly in a superior to inferior fashion. Amniotomy was mad e with clear fluid at the time of rupture. head was grasped and elevated through the hysterotomy in an atraumatic fashion. The baby delivered in OA position, nuchal cord was reduced. Remainder of the body delivered without incident. Nose and mouth were bulb suctioned on the surgical field. The cord was double clamped and cut, baby was handed off to awaiting pediatrics staff. Cord segment and blood were obtained. Placenta was then expressed from the uterus. The uterus was exteriorized. Several passes were made inside the uterus to remove the remaining membranes. Attention was then turned to the hysterotomy, which was then closed with a running locked suture of 0 Vicryl on a CTX needle. An imbricating layer was then performed using 0-Monocryl. There was noted to be good hemostasis. The posterior cul-de-sac was then inspected and cleaned of clot and debris. The hysterotomy was again inspected and noted to be hemostatic. The uterus was returned to the abdomen. The right and left pericolic gutters were cleaned of all clot and debris. The hysterotomy was again noted to be hemostatic. Space of Retzius was noted to be hemostatic. The fascia was then closed with a running suture of 0 Vicryl on a CT1 needle. Subcutaneous tissue was copiously irrigated and noted to be hemostatic. Subcutaneous tissue was re-approximated using 2-0 plain gut. The skin was then closed with a running suture of 3-0 Monocryl in a subcuticular fashion. At termination of the procedure, fundal pressure was applied and a moderate amount of lochia was expressed. Pressure dressing was applied to the patient. She tolerated the procedure well. All sponge, needle, instrument counts were correct x 2. I attest to the content of the Intraoperative Record and any orders documented therein. Any exceptions are noted below. OB Procedure Charges [id number]
--- NOTE | 2024-11-02 08:58 | Anesthesia Procedure Note ---
Date of Service November 02, 2024 Anesthesia Post Epidural Note Vital Signs Vital Signs: Temp Pulse Resp BP Pulse Ox 37.1 C 86 20 121/62 98 11/02/24 07:30 11/02/24 08:53 11/02/24 07:47 11/02/24 08:53 11/02/24 08:53 Pain Intensity Left Ribs: Pain Intensity: 3 Notes Mental Status: alert / awake / arousable and participated in evaluation Nausea / Vomiting: adequately controlled Pain: adequately controlled Airway Patency, RR, SpO2: stable & adequate BP & HR: stable & adequate Hydration State: stable & adequate Neuraxial Anesthesia: was administered and sensory block resolved Anesthetic Complications: no major complications apparent and Pt Satisfied with anesthetic care Epidural: Removed without complications and With tip intact
[2024-11-02] MEDS ORDERED: IBUPROFEN 600 MG TAB PO PRN (09:08)
[2024-11-02] MEDS ORDERED: bisacodyL 10 MG SUPP PR PRN (09:08)
[2024-11-02] MEDS ORDERED: BENZOCAINE 20% SPRY 85 APPLN/85 GM CAN EXT PRN ×2 (09:08→09:14)
[2024-11-02] MEDS ORDERED: HYDROCORTISONE ACETATE 25 MG SUPP PR PRN ×2 (09:08→09:14)
[2024-11-02] MEDS ORDERED: OXYTOCIN 30 UNITS/NSS 30 UNITS/500 ML BAG IV PRN (09:08)
[2024-11-02] MEDS ORDERED: ACETAMINOPHEN 325 MG TAB PO PRN (09:08)
[2024-11-02] MEDS: DIPHTHER/TETAN/PERTUS Vaccine (Tdap, Adol/Adult) 0.5mL IM ONE (09:10)
[2024-11-02] MEDS ORDERED: MAGNESIUM HYDROXIDE SUSP 30 ML UDC PO PRN (09:14)
[2024-11-02] MEDS ORDERED: SENNA 8.6 MG TAB PO PRN (09:14)
[2024-11-02] MEDS ORDERED: DIPHTHER/TETAN/PERTUS Vaccine (Tdap, Adol/Adult) 0.5mL IM ONE (09:14)
[2024-11-02] MEDS ORDERED: CALCIUM CARBONATE 500 MG CHEWABLE TAB PO PRN (09:14)
[2024-11-02] MEDS ORDERED: SODIUM CHLORIDE 0.9% 1,000 ML IV SCH (09:15)
[2024-11-02] MEDS: KETOROLAC 30 MG/ML VIAL IV SCH (09:43)
--- NOTE | 2024-11-02 11:25 | Anesthesiology Progress Note ---
Date of Service November 02, 2024 Anesthesia Post Procedure Vital Signs Vital Signs: Temp Pulse Resp BP Pulse Ox 11/02/24 11:24 70 126/61 11/02/24 11:22 68 97 11/02/24 11:21 72 93 11/02/24 11:17 71 96 11/02/24 11:14 63 126/65 11/02/24 11:12 73 96 11/02/24 11:07 67 96 11/02/24 11:04 70 124/62 11/02/24 11:02 64 97 11/02/24 10:57 62 96 11/02/24 10:54 61 138/65 11/02/24 10:44 64 127/80 11/02/24 10:43 58 L 97 11/02/24 10:38 57 L 97 11/02/24 10:35 148 H 173/101 H 11/02/24 10:33 55 L 97 11/02/24 10:28 60 97 11/02/24 10:24 18 11/02/24 10:24 54 L 127/64 11/02/24 10:23 56 L 96 11/02/24 10:18 55 L 97 11/02/24 10:14 50 L 127/61 11/02/24 10:13 56 L 97 11/02/24 10:08 53 L 97 11/02/24 10:04 53 L 138/70 11/02/24 10:03 60 97 11/02/24 09:58 56 L 97 11/02/24 09:55 67 134/71 11/02/24 09:54 20 11/02/24 09:53 58 L 97 11/02/24 09:48 57 L 98 11/02/24 09:44 20 11/02/24 09:44 60 126/63 11/02/24 09:43 59 L 97 11/02/24 09:38 64 99 11/02/24 09:34 20 11/02/24 09:34 64 109/63 11/02/24 09:33 64 98 11/02/24 09:28 72 98 11/02/24 09:24 20 11/02/24 09:24 75 110/62 11/02/24 09:23 76 99 11/02/24 09:18 80 98 11/02/24 09:14 18 11/02/24 09:14 74 127/81 11/02/24 09:13 78 96 11/02/24 09:08 73 98 11/02/24 09:04 18 11/02/24 09:04 76 121/63 11/02/24 09:03 78 97 11/02/24 08:58 87 96 11/02/24 08:53 37.0 C 20 11/02/24 08:53 86 121/62 98 11/02/24 07:47 20 11/02/24 07:47 20 11/02/24 07:46 85 94 11/02/24 07:41 78 95 11/02/24 07:36 83 96 11/02/24 07:34 96 H 95/55 L 11/02/24 07:31 85 94 11/02/24 07:30 20 11/02/24 07:30 37.1 C 20 11/02/24 07:26 84 95 11/02/24 07:21 91 H 96 11/02/24 07:18 89 108/62 11/02/24 07:16 81 96 11/02/24 07:11 80 94 11/02/24 07:06 86 85 L 11/02/24 07:03 88 116/61 11/02/24 07:01 79 95 11/02/24 06:56 91 H 94 11/02/24 06:51 86 93 11/02/24 06:47 105 H 90 11/02/24 06:46 95 H 92 11/02/24 06:41 88 93 11/02/24 06:39 108 H 88 L 11/02/24 06:36 95 H 93 11/02/24 06:33 98 H 89 L 11/02/24 06:31 99 H 93 11/02/24 05:59 37.1 C 11/02/24 05:57 143 H 94 11/02/24 05:52 139 H 94 11/02/24 05:47 137 H 94 11/02/24 05:42 120 H 94 11/02/24 05:37 123 H 94 11/02/24 05:32 129 H 96 11/02/24 05:29 102 H 124/64 11/02/24 05:27 123 H 95 11/02/24 05:22 150 H 95 11/02/24 05:21 116 H 122/62 11/02/24 05:17 113 H 95 11/02/24 05:12 134 H 94 11/02/24 05:07 149 H 96 11/02/24 05:06 105 H 130/60 11/02/24 05:02 104 H 95 11/02/24 04:57 108 H 95 11/02/24 04:53 113 H 133/63 11/02/24 04:52 137 H 94 11/02/24 04:47 114 H 95 11/02/24 04:42 137 H 95 11/02/24 04:37 119 H 95 11/02/24 04:32 96 11/02/24 04:32 101 H 11/02/24 04:32 122 H 89 L 11/02/24 04:27 105 H 96 11/02/24 04:22 124 H 96 11/02/24 04:21 108 H 136/74 11/02/24 04:17 124 H 96 11/02/24 04:12 97 H 97 11/02/24 04:07 89 97 11/02/24 04:06 108 H 132/72 11/02/24 04:02 91 H 97 11/02/24 03:57 94 H 97 11/02/24 03:52 88 96 11/02/24 03:47 89 97 11/02/24 03:42 92 H 97 11/02/24 03:37 89 98 11/02/24 03:36 88 130/76 11/02/24 03:32 86 97 11/02/24 03:30 18 11/02/24 03:30 37.1 C 18 11/02/24 03:27 88 97 11/02/24 03:22 89 133/77 97 11/02/24 03:17 89 98 11/02/24 03:12 88 98 11/02/24 03:07 96 H 97 11/02/24 03:02 103 H 97 11/02/24 02:57 91 H 97 11/02/24 02:52 87 96 11/02/24 02:47 89 96 11/02/24 02:42 87 97 11/02/24 02:37 82 96 11/02/24 02:36 90 109/59 L 11/02/24 02:32 79 97 11/02/24 02:27 78 97 11/02/24 02:22 80 97 11/02/24 02:21 86 109/60 11/02/24 02:17 88 97 11/02/24 02:12 91 H 97 11/02/24 02:07 87 94 11/02/24 02:06 81 106/57 L 11/02/24 02:02 92 H 94 11/02/24 01:57 83 94 11/02/24 01:52 92 H 94 11/02/24 01:51 93 H 100/59 L 11/02/24 01:47 82 95 11/02/24 01:42 81 95 11/02/24 01:37 96 11/02/24 01:37 94 H 11/02/24 01:37 96 H 114/56 L 11/02/24 01:35 37.5 C 11/02/24 01:32 92 H 94 11/02/24 01:28 86 94 11/02/24 01:27 92 H 94 11/02/24 01:22 91 H 117/56 L 95 11/02/24 01:21 87 94 11/02/24 01:17 85 94 11/02/24 01:13 87 94 11/02/24 01:12 91 H 95 11/02/24 01:07 96 11/02/24 01:07 88 11/02/24 01:07 85 121/57 L 11/02/24 01:04 82 94 11/02/24 01:02 83 95 11/02/24 00:57 95 11/02/24 00:57 82 11/02/24 00:57 83 94 11/02/24 00:52 95 11/02/24 00:52 78 11/02/24 00:52 83 117/58 L 11/02/24 00:46 84 95 11/02/24 00:41 81 96 11/02/24 00:36 79 96 11/02/24 00:31 71 97 11/02/24 00:26 87 98 11/02/24 00:21 81 98 11/02/24 00:16 96 H 96 11/02/24 00:11 81 98 11/02/24 00:06 76 122/62 97 11/02/24 00:01 83 95 11/01/24 23:59 75 94 11/01/24 23:56 80 95 11/01/24 23:52 77 125/67 11/01/24 23:51 75 95 11/01/24 23:46 76 96 11/01/24 23:41 92 H 97 11/01/24 23:37 79 127/68 11/01/24 23:36 75 97 11/01/24 23:35 37.1 C 11/01/24 23:31 80 99 11/01/24 23:26 79 99 11/01/24 23:21 98 11/01/24 23:21 83 11/01/24 23:21 80 137/73 11/01/24 23:16 83 98 11/01/24 23:11 82 98 11/01/24 23:07 82 134/73 11/01/24 23:06 77 98 11/01/24 23:01 100 11/01/24 23:01 79 11/01/24 23:01 81 92 11/01/24 22:56 71 100 11/01/24 22:51 81 120/69 99 11/01/24 22:46 71 98 11/01/24 22:41 90 97 11/01/24 22:36 88 124/77 96 11/01/24 22:31 82 97 11/01/24 22:26 78 98 11/01/24 22:25 78 92 11/01/24 22:22 73 125/76 11/01/24 22:21 79 98 11/01/24 22:16 82 97 11/01/24 22:11 81 98 11/01/24 22:06 69 114/57 L 98 11/01/24 22:01 65 98 11/01/24 21:56 81 98 11/01/24 21:51 67 98 11/01/24 21:46 82 98 11/01/24 21:41 78 98 11/01/24 21:36 99 11/01/24 21:36 83 11/01/24 21:36 80 121/67 11/01/24 21:31 71 99 11/01/24 21:26 81 99 11/01/24 21:21 79 114/64 100 11/01/24 21:16 80 100 11/01/24 21:11 86 96 11/01/24 21:10 36.6 C 11/01/24 21:06 100 11/01/24 21:06 82 11/01/24 21:06 82 124/67 0219/25 21:04 74 94 11/01/24 21:01 76 100 11/01/24 20:56 75 100 11/01/24 20:53 76 121/67 11/01/24 20:51 76 99 11/01/24 20:46 77 98 11/01/24 20:45 81 93 11/01/24 20:41 79 98 11/01/24 20:36 67 99 11/01/24 20:31 74 98 11/01/24 20:26 67 98 11/01/24 20:21 62 102/58 L 98 11/01/24 20:16 60 98 11/01/24 20:11 62 97 11/01/24 20:07 76 102/55 L 11/01/24 20:06 73 97 11/01/24 20:01 67 97 11/01/24 19:56 63 97 11/01/24 19:53 68 100/52 L 11/01/24 19:51 67 96 11/01/24 19:46 85 96 11/01/24 19:41 76 95 11/01/24 19:36 79 105/59 L 96 11/01/24 19:31 80 95 11/01/24 19:30 80 94 11/01/24 19:26 71 95 11/01/24 19:21 96 11/01/24 19:21 78 11/01/24 19:21 78 100/55 L 11/01/24 19:16 82 96 11/01/24 19:11 79 96 11/01/24 19:08 75 106/57 L 11/01/24 19:06 81 97 11/01/24 19:05 37.1 C 20 11/01/24 19:01 72 97 11/01/24 19:00 16 11/01/24 19:00 16 11/01/24 18:56 68 97 11/01/24 18:52 63 112/60 11/01/24 18:51 63 96 11/01/24 18:46 71 97 11/01/24 18:41 70 97 11/01/24 18:37 74 111/59 L 11/01/24 18:36 63 96 11/01/24 18:31 92 H 98 11/01/24 18:30 16 11/01/24 18:30 16 11/01/24 18:26 89 97 11/01/24 18:22 81 114/53 L 11/01/24 18:21 102 H 97 11/01/24 18:16 81 95 11/01/24 18:11 81 95 11/01/24 18:06 78 120/59 L 95 11/01/24 18:01 16 11/01/24 18:01 16 11/01/24 18:01 96 11/01/24 18:01 85 11/01/24 18:01 90 115/63 11/01/24 18:00 16 11/01/24 18:00 16 11/01/24 17:59 77 119/66 11/01/24 17:57 90 111/68 11/01/24 17:56 88 96 11/01/24 17:55 85 118/73 11/01/24 17:54 16 11/01/24 17:54 16 11/01/24 17:53 80 116/72 11/01/24 17:51 97 11/01/24 17:51 91 H 11/01/24 17:51 82 115/75 11/01/24 17:50 16 11/01/24 17:50 16 11/01/24 17:49 91 H 121/80 11/01/24 17:46 97 H 98 11/01/24 17:41 96 H 99 11/01/24 17:36 96 H 96 11/01/24 17:34 87 119/81 11/01/24 17:31 86 97 11/01/24 17:30 16 11/01/24 17:30 16 11/01/24 17:26 83 96 11/01/24 17:21 80 97 11/01/24 17:16 91 H 98 11/01/24 16:59 36.6 C 11/01/24 15:57 76 144/83 H 11/01/24 15:13 76 121/74 11/01/24 14:50 36.6 C 11/01/24 14:42 87 129/91 11/01/24 14:12 68 112/65 11/01/24 13:42 80 120/68 11/01/24 12:32 80 114/71 11/01/24 12:31 16 11/01/24 12:31 36.8 C 16 11/01/24 11:45 85 121/70 Pain Intensity Left Ribs: Pain Intensity: 3 Transfer of Care Handoff Completed per policy Notes Mental Status: alert / awake / arousable and participated in evaluation Patient Amnestic to Procedure: Yes Nausea / Vomiting: adequately controlled Pain: adequately controlled Airway Patency, RR, SpO2: stable & adequate BP & HR: stable & adequate Hydration State: stable & adequate Anesthetic Complications: no major complications apparent and Pt Satisfied with anesthetic care
[2024-11-02] MEDS: ONDANSETRON INJ 2 MG/ML 2 ML VIAL IV PRN (13:21)
[2024-11-02] MEDS: SIMETHICONE 80 MG CHEW PO SCH (13:21)
[2024-11-02] MEDS: LACTATED RINGER'S 1,000 ML IV SCH (14:31)
[2024-11-02] MEDS: ACETAMINOPHEN 325 MG TAB PO SCH (15:18)
[2024-11-02] MEDS ORDERED: DOCUSATE SODIUM 100 MG CAP PO SCH (21:00)
[2024-11-02] MEDS: DOCUSATE SODIUM 100 MG CAP PO SCH (21:17)
[2024-11-03] MEDS: NALOXONE HCL 0.08 MG in SYRINGE 1.8 ML IV PRN (00:47)
[2024-11-03] MEDS ORDERED: PROMETHAZINE 12.5 MG/50.5 ML BAG IV PRN (01:30)
[2024-11-03] MEDS ORDERED: ONDANSETRON INJ 2 MG/ML 2 ML VIAL IV PRN (01:30)
[2024-11-03] MEDS ORDERED: diphenhydrAMINE Capsule 25 MG CAP PO PRN (01:30)
[2024-11-03] MEDS ORDERED: diphenhydrAMINE 50 MG/ML VIAL IV PRN (01:30)
[2024-11-03] MEDS ORDERED: oxyCODONE HCL IR 5 MG TAB (IMMEDIATE RELEASE) PO PRN (01:30)
[2024-11-03] MEDS ORDERED: HYDROmorphone INJ 0.5 MG/0.5 ML SYR IV PRN (01:30)
--- NOTE | 2024-11-03 06:47 | Obstetrical Progress Note ---
Date of Service <Bay Kaur MD - Last Filed: 11/03/24 07:16> November 03, 2024 Assessment & Plan <Bay Kaur MD - Last Filed: 11/03/24 07:16> (1) care and examination: POD#1 s/p LTCS at 39 6/7 wga: Stable. GBS+ s/p PCN, Rh+, ri, vitals wnl, H/H noted Continue routine care, work on ambulation, diet as tolerated Possible d/c tomorrow <Concha Robertson MD, FACOG - Last Filed: 11/03/24 07:18> (1) care and examination: Subjective <Bay Kaur MD - Last Filed: 11/03/24 07:16> 28yo female POD#1 following delivery at 39 6/7 WGA d/t FTD Mild abd pain/cramping, well managed on analgesics Is voiding Tolerating meals Ambulating normally + passing gas, no BM yet Having appropriate lochia Planning for exclusive . Constitutional: no fever, no chills or no sweats Respiratory: no dyspnea Cardiovascular: no chest pain, no palpitations or no calf pain Breast: no breast pain Gastrointestinal: no nausea or no vomiting Genitourinary (female): no dysuria Neurologic: no headache(s) no changes in vision, no headaches Physical Exam <Bay Kaur MD - Last Filed: 11/03/24 07:16> General: Alert, oriented. No acute distress. Cardiac: Regular rate and rhythm, no murmurs, rubs, or gallops. Respiratory: Clear to auscultation bilaterally. No increased work of breathing. Symmetrical chest rise. No respiratory distress. Abdomen: Soft, nontender, nondistended. Bowel sounds present. Uterus: Uterine fundus firm, nontender, surgical scar clean and healing well. Lower extremities: No lower extremity edema or swelling. No deep calf pain. Results & Data <Bay Kaur MD - Last Filed: 11/03/24 07:16> Vital Signs (Past 12 Hours) Vital Signs Temp Pulse Resp BP Pulse Ox O2 Del Method 11/03/24 03:34 36.4 C L 67 18 99/43 L 98 Room Air 11/03/24 01:00 18 99 11/03/24 00:45 36.5 C 78 18 108/53 L 99 Room Air 11/03/24 00:00 18 100 11/02/24 23:00 18 100 11/02/24 22:00 18 100 11/02/24 21:15 36.8 C 72 18 109/62 11/02/24 21:00 18 97 11/02/24 20:00 18 100 11/02/24 19:00 18 97 Laboratory Results 11/03/24 06:41 Supervising Physician <Concha Robertson MD, FACOG - Last Filed: 11/03/24 07:18> Co-Signing Physician Notes Resident Physician Supervision Note: I interviewed and examined the patient. Discussed with Dr. Kaur and agree with findings and plan as documented in the note. Any exceptions or clarifications are listed here: Doing well today. Routine care. Notes her legs are itchy. Pain controlled. Had some urinary retention but resolved with Narcan. Documented By: Concha Robertson MD, FACOG Resident Activity Tracking <Bay Kaur MD - Last Filed: 11/03/24 07:16> Resident Involvement: Resident Care Provided Care Provided: Adult Hospital Medicine
[2024-11-03 07:12] LABS: Hematocrit (blood only) 28.5 % (37.0-47.0); Hemoglobin 9.8 g/dl (12.0-16.0); Mean Corpuscular Hemoglobin 31.7 pg (25.0-34.0); Mean Corpuscular Hgb Conc 34.4 g/dL (32.0-36.0); Mean Corpuscular Volume 92.2 fL (80.0-100.0); Platelet Count 195 K/uL (130-400); RDW Coefficient of Variation 14.6 % (11.5-14.5); RDW Standard Deviation 48.9 fL (36.4-46.3); Red Blood Count 3.09 M/uL (4.20-5.40); White Blood Count 23.87 K/ul (4.8-10.8)
[2024-11-03] MEDS ORDERED: FERROUS SULFATE 325 MG TAB PO SCH (08:00)
[2024-11-03] MEDS ORDERED: PRENATAL VITAMIN 1 TAB PO SCH (08:00)
[2024-11-03] MEDS: PRENATAL VITAMIN 1 TAB PO SCH (08:38)
[2024-11-03] MEDS: FERROUS SULFATE 325 MG TAB PO SCH (08:38)
[2024-11-03] MEDS ORDERED: KETOROLAC 30 MG/ML VIAL IV PRN (09:14)
[2024-11-03] MEDS: IBUPROFEN 600 MG TAB PO SCH (10:41)
[2024-11-03] MEDS ORDERED: bisacodyL 5 MG TABEC PO SCH (20:00)
[2024-11-03] MEDS: bisacodyL 5 MG TABEC PO SCH (21:35)
--- NOTE | 2024-11-04 06:45 | Obstetrical Progress Note ---
Date of Service <Bay Kaur MD - Last Filed: 11/04/24 08:04> November 04, 2024 Assessment & Plan <Bay Kaur MD - Last Filed: 11/04/24 08:04> (1) care and examination: POD#2 s/p pLTCS at 39 6/7 wga: Stable. GBS+ s/p PCN, Rh+, ri, vitals wnl, H/H noted Continue routine care, ambulation, diet as tolerated Discussed available prn meds to help w BM DC later today <Miranda Fuller MD, FACOG - Last Filed: 11/04/24 08:33> (1) care and examination: Subjective <Bay Kaur MD - Last Filed: 11/04/24 08:04> 28yo female POD#2 following delivery at 39 6/7 WGA d/t FTD Mild abd pain/cramping, well managed on tylenol & motrin Is voiding w/o issue Tolerating meals Ambulating normally + passing gas, no BM yet Having appropriate lochia Planning for exclusive . Constitutional: no fever, no chills or no sweats Respiratory: no dyspnea Cardiovascular: no chest pain, no palpitations or no calf pain Breast: no breast pain Gastrointestinal: no nausea or no vomiting Genitourinary (female): no dysuria Neurologic: no headache(s) Physical Exam <Bay Kaur MD - Last Filed: 11/04/24 08:04> General: Alert, oriented. No acute distress. Cardiac: Regular rate and rhythm, no murmurs, rubs, or gallops. Respiratory: Clear to auscultation bilaterally. No increased work of breathing. Symmetrical chest rise. No respiratory distress. Abdomen: Soft, nontender, nondistended. Bowel sounds present. Uterus: Uterine fundus firm, nontender, surgical scar clean and healing well. Lower extremities: No lower extremity edema or swelling. No deep calf pain. Results & Data <Bay Kaur MD - Last Filed: 11/04/24 08:04> Vital Signs (Past 12 Hours) Vital Signs Temp Pulse Resp BP Pulse Ox O2 Del Method 11/04/24 00:00 Room Air 11/03/24 22:56 36.7 C 85 18 128/76 96 Room Air Laboratory Results 11/04/24 06:41 Supervising Physician <Miranda Fuller MD, FACOG - Last Filed: 11/04/24 08:33> Co-Signing Physician Notes Resident Physician Supervision Note: I interviewed and examined the patient. Discussed with Dr. Kaur and agree with findings and plan as documented in the note. Any exceptions or clarifications are listed here: [None] Documented By: Miranda Fuller MD, FORD Resident Activity Tracking <Bay Kaur MD - Last Filed: 11/04/24 08:04> Resident Involvement: Resident Care Provided Care Provided: Adult Hospital Medicine
[2024-11-04 07:03] LABS: Hematocrit (blood only) 28.1 % (37.0-47.0); Hemoglobin 9.6 g/dl (12.0-16.0)
[2024-11-04 07:59] VITALS: BP 121/73; PULSE 76; RESP 16; TEMP 97.9; O2SAT 97
[2024-11-04] MEDS: IBUPROFEN 600 MG TAB PO PRN (09:01)
[2024-11-04] MEDS ORDERED: bisacodyL 10 MG SUPP PR PRN (09:14)
[2024-11-04] MEDS ORDERED: ACETAMINOPHEN 325 MG TAB PO PRN (15:14)
--- NOTE | 2024-11-06 13:07 | Discharge Summary ---
Date of Service November 06, 2024 Admission HPI Per Admitting Provider Patient is a 28yo female G1P currently at 39 5/7 WGA (w TREVA 11/03/24 as determined by US) who is here for elective IOL. Pt has h/o generalized anxiety and PCOS. This has been complicated by A1GDM. Fetus LGA w efw 86% at 36wks. Patient has had regular appointments with OB. She denies fevers, fatigue, PAYNE, SOB, chest pain, leg swelling, or n/v exceeding baseline - related symptoms. Mild, irregular ctx; +FM; no FL or BS; FHT cat 1 Blood type: O+ Antibody screen: Neg GBS: Neg Rubella: Immune VDRL/RPR: Neg Gonorrhea: Not detected Chalmydia: Not detected HIV: Non-reactive HbSAg: Non-reactive Discharge Data Consultations 11/01/24 08:17 Consult Anesthesiology Stat Procedures Performed Operation Date: 11/02/24 08:15 Actual Procedures p Section in LD(Bilateral) - Stefani Marion MD Hospital Course (1) Gestational diabetes mellitus (GDM) affecting , antepartum: (2) 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 B Streptococcus: Plan 28 yo G1 at 39 6/7 presented one day ago for elective induction due to A1GDM and suspected LGA. Penicillin was started for GBS+ status. Induction was begun with sanabria bulb and pitocin. Following bulb expulsion, she underwent arom. She received an epidural for pain control and progressed to complete and +1 station. She pushed for just about 3 hours with minimal descent. Given suspicion for LGA, was recommended for CS and pt desired to proceed. See operative report for details. Postop course was uncomplicated and she was discharged home on POD2 Coding Level of Care Code None Diagnoses Gestational diabetes mellitus (GDM) affecting , antepartum O24.419 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 B Streptococcus Z22.330
== END 2024-11-04 13:30 | disposition home or self-care (01) | DRG 788 ==
LOC: 4S1 07:21 → 4E2 11-02 12:15